=== PATIENT | male | born 1955 | race Caucasian/White ===

== ENCOUNTER → 2017-11-07 | Outpatient (CLI) | payer OTHER ==
--- NOTE | 2017-11-07 08:29 | MR ---
EXAMINATION TYPE: MR brain and iac wo/w con DATE OF EXAM: 11/07/2017 8:11 AM COMPARISON: NONE HISTORY: Tinnitus. TECHNIQUE: Multiplanar, multiecho imaging of the brain was obtained with and without intravenous adm inistration of 7 mL intravenous Gadavist. FINDINGS: Midline structures are unremarkable. There is a normal craniocervical junction. Echoplanar diffusion imaging is unremarkable. There is some mild mucoperiosteal thickening involving the left maxillary sinus. There are normal vascular flow voids. The orbits are unremarkable. High-resolution imaging through the posterior fossa exquisitely demonstrates the seventh 8th nerve co mplex without evidence of a CP angle mass lesion or intracanalicular acoustic schwannoma. Following intravenous administration of gadolinium, there is no evidence of intracanalicular enhancem ent. There is no abnormal enhancement throughout the brain. There are one or 2 FLAIR lesions in the subcortical sanchez matter on the left. The largest measures 5.1 mm. There is no mass effect, midline shift or intracranial blood. IMPRESSION: 1. NO ACUTE INTRACRANIAL ABNORMALITY. 2. NO EVIDENCE OF A CP ANGLE MASS LESION OR INTRACANALICULAR ACOUSTIC SCHWANNOMA. 3. MILD LEFT-SIDED SINUS MUCOSAL DISEASE. 4. RARE, TINY FLAIR LESIONS IN THE DEEP, SUBCORTICAL WHITE MATTER ON THE LEFT OF QUESTIONABLE SIGNIFI CANCE OR ETIOLOGY.
== END | disposition home or self-care (01) ==
LOC: RADMRIMAIN 06:59
PROVIDERS: ATTEND Otolaryngology
DX: J32.8 Other chronic sinusitis (principal)
CPT/HCPCS: 82565; 70553; 36415; A9581

== ENCOUNTER → 2020-02-01 | Outpatient (CLI) | payer BC ==
--- NOTE | 2020-02-01 17:20 | US ---
EXAMINATION TYPE: US thyroid st tissue head/neck DATE OF EXAM: 02/01/2020 COMPARISON: NONE CLINICAL HISTORY: E04.1 thyroid nodule. Palpable GLAND SIZE: Right Lobe: 4.1 x 1.5 x 1.9 cm Overall Parenchyma: homogenous. Left Lobe: 3.5 x 1.2 x 1.4 cm Overall Parenchyma: homogeneous Isthmus Thickness: 0.2 cm Diffusely increased vascularity. NODULES RIGHT: # of nodules measured on right: 1 with multiple subcentimeter areas noted 1. 0.7 X 0.4 x 0.5 cm anechoic cystic nodule at the medial pole with well-defined margins. This no dule is wider than tall and shows no intranodular vascularity. Prior size: no previous LEFT: # of nodules measured on left: 0 ISTHMUS: # of nodules measured in the isthmus: 0 Bilateral neck scanned, no evidence of lymphadenopathy. IMPRESSION: 1. Benign subcentimeter right thyroid cyst. 2. Homogenous appearance of the thyroid gland, however with diffusely increased vascularity. Finding s can be seen in hyperthyroidism. Recommend correlation with thyroid laboratory testing.
== END | disposition home or self-care (01) ==
LOC: RADUSWWP 14:43
PROVIDERS: ATTEND Family Medicine
DX: E04.1 Nontoxic single thyroid nodule (principal)
CPT/HCPCS: 76536

== ENCOUNTER → 2023-01-27 | Outpatient (CLI) | payer BC ==
--- NOTE | 2023-01-27 15:02 | US ---
EXAMINATION TYPE: US thyroid st tissue head/neck DATE OF EXAM: 01/27/2023 COMPARISON: US 02/06 CLINICAL INDICATION: Male, 67 years old with history of E04.1 THYROID NODULE; GLAND SIZE: Right Lobe: 4.9 x 1.8 x 1.5 cm Overall Parenchyma: homogenous Left Lobe: 3.7 x 1.4 x 1.0 cm Overall Parenchyma: homogeneous Isthmus Thickness: 0.3 cm NODULES RIGHT: # of nodules measured on right: 1 1. 0.8 X 0.3 x 0.4 cm, mid pole cystic nodule, which is wider than tall, with smooth margins, with out echogenic foci. Prior size: 0.7 x 0.4 x 0.5 cm LEFT: # of nodules measured on left: 0 ISTHMUS: # of nodules measured in the isthmus: 0 Bilateral neck scanned, no evidence of lymphadenopathy. IMPRESSION: Stable benign subcentimeter right thyroid cyst. No new or enlarging thyroid nodules.
== END | disposition home or self-care (01) ==
LOC: RADUSWWP 14:04
PROVIDERS: ATTEND Family Medicine
DX: E04.1 Nontoxic single thyroid nodule (principal)
CPT/HCPCS: 76536

== ENCOUNTER → 2024-08-17 | Outpatient (CLI) | payer MEDICARE ==
--- NOTE | 2024-08-17 13:32 | US ---
EXAMINATION TYPE: US thyroid st tissue head/neck DATE OF EXAM: 08/17/2024 COMPARISON: 01/27/2023 CLINICAL INDICATION: Male, 69 years old with history of E04.1 NONTOXIC SINGLE THYROID NODULE; Thyroid nodule. TECHNIQUE: Grayscale and color Doppler imaging of the thyroid gland. FINDINGS: GLAND SIZE: Right Lobe: 4.6 x 1.9 x 1.8 cm Overall Parenchyma: homogeneous Left Lobe: 4.1 x 1.9 x 1.1 cm Overall Parenchyma: homogeneous Isthmus Thickness: .3 cm NODULES RIGHT: # of nodules measured on right: 1 1. .7 X .3 x .6 cm, lower benign colloid cyst. Prior size: .8 x .3 x .4 cm LEFT: # of nodules measured on left: 0 ISTHMUS: # of nodules measured in the isthmus: 0 Bilateral neck scanned, no evidence of lymphadenopathy. IMPRESSION: Stable benign 7 mm colloid cyst in the right lobe. [facility], , 08/17/2024 1:30 PM
== END | disposition home or self-care (01) ==
LOC: RADUSWWP 12:40
PROVIDERS: ATTEND Family Medicine
DX: E04.1 Nontoxic single thyroid nodule (principal)
CPT/HCPCS: 76536